=== PATIENT | female | born 1995 | race Hispanic/Latino ===

== ENCOUNTER 2025-05-03 14:52 | Inpatient (IN) | payer BC ==
[~2025-05-03] VITALS: Ht 149.9 cm; Wt 77.1 kg
[2025-05-03] MEDS: DICYCLOMINE HCL 20 MG/2 ML VIAL IM ONE (16:18)
[2025-05-03] MEDS: SODIUM CHLORIDE 0.9% 1000ML 1,000 ML IV STA (16:18)
[2025-05-03 16:32] LABS: BASOPHILS % 0.2 % (0.0-1.0); EOSINOPHILS % 0.5 % (0.0-6.0); LYMPHOCYTES % 15.9 % (18.0-39.1); MONOCYTES % 9.8 % (4.4-11.3); NEUTROPHILS % 73.3 % (38.7-80.0); RED CELL DISTRIBUTION WIDTH 11.9 % (11.7-14.4)
[2025-05-03 16:39] LABS: EPITHELIAL CELLS,URINE MODERATE /LPF; LEUKOCYTE ESTERASE ,URINE SMALL (NEGATIVE); PROTEIN,URINE DIPSTICK NEGATIVE (NEGATIVE); URINE UROBILINOGEN 0.2 mg/dL (0.2 - 1)
[2025-05-03 16:54] LABS: EST GLOMERULAR FILTRATION RATE 121.0 ML/MIN (>=60)
[2025-05-03] MEDS: KETOROLAC TROMETHAMINE 30 MG/ML VIAL IV STA (17:01)
[2025-05-03] MEDS: ONDANSETRON HCL INJ 2MG/ML 2ML 2 MG/ML VIAL IV PRN (17:01)
[2025-05-03] MEDS ORDERED: IOPAMIDOL 370 MG/ML 100 ML INFUS..BTL INJ ONE (17:56)
[2025-05-03] MEDS ORDERED: ONDANSETRON HCL INJ 2MG/ML 2ML 2 MG/ML VIAL IV PRN (19:00)
[2025-05-03 19:47] VITALS: PULSE 64; RESP 17; TEMP 98
[2025-05-03 20:51] VITALS: BP 120/65; PULSE 65; RESP 16; TEMP 98.1; O2SAT 98
[2025-05-03 21:00] VITALS: BP 120/65; PULSE 65; RESP 16; TEMP 98.1; O2SAT 98
[2025-05-03] MEDS: SODIUM CHLORIDE 0.9% 1000ML 1,000 ML IV SCH (21:18)
[2025-05-04] VITALS (9 sets, daily range): BP systolic 103–133; BP diastolic 50–81; PULSE 58–69; RESP 16–18; TEMP 97.7–98.3; O2SAT 98–100
[2025-05-04 05:29] LABS: BASOPHILS % 0.3 % (0.0-1.0); EOSINOPHILS % 1.1 % (0.0-6.0); LYMPHOCYTES % 25.6 % (18.0-39.1); MONOCYTES % 12.1 % (4.4-11.3); NEUTROPHILS % 60.6 % (38.7-80.0); RED CELL DISTRIBUTION WIDTH 11.9 % (11.7-14.4)
[2025-05-04 06:16] LABS: EST GLOMERULAR FILTRATION RATE 105.0 ML/MIN (>=60)
[2025-05-04] MEDS ORDERED: SEVOFLURANE INHAL SOLN 250 ML PEN BTL ONE (11:54)
[2025-05-04] MEDS ORDERED: MIDAZOLAM HCL 2 MG/2 ML VIAL ONE (11:54)
[2025-05-04] MEDS ORDERED: LIDOCAINE HCL 2% LOCAL INJ 5 ML SDV VIAL INJ ONE (11:54)
[2025-05-04] MEDS ORDERED: ROCURONIUM BROMIDE 1 ML IV ONE (11:54)
[2025-05-04] MEDS ORDERED: PROPOFOL IV EMULSION 10 MG/ML 20 ML VIAL ONE (11:54)
[2025-05-04] MEDS ORDERED: FENTANYL CITRATE/PF 100MCG/2 ML INJ ONE (11:54)
[2025-05-04] MEDS ORDERED: DEXAMETHASONE SOD PHOS INJ 4 MG/ML SDV ONE (12:49)
[2025-05-04] MEDS ORDERED: ONDANSETRON HCL INJ 2MG/ML 2ML 2 MG/ML VIAL ONE (12:49)
[2025-05-04] MEDS ORDERED: ACETAMINOPHEN 1000 MG/100 ML 100 ML IV ONE (12:49)
[2025-05-04] MEDS ORDERED: KETOROLAC TROMETHAMINE 30 MG/ML VIAL ONE (12:52)
[2025-05-04] MEDS ORDERED: CEFTRIAXONE 1 GM VIAL ONE (13:36)
[2025-05-04] MEDS ORDERED: GLYCOPYRROLATE INJ 0.2 MG/ML VIAL ONE ×2 (13:36→13:37)
[2025-05-04] MEDS ORDERED: SUGAMMADEX SODIUM 200 MG/2 ML VIAL IV ONE (13:36)
[2025-05-04] MEDS ORDERED: NEOSTIGMINE 1 MG/ML 10ML VIAL ONE (13:36)
[2025-05-04] MEDS ORDERED: HYDROCODONE/APAP 7.5MG-325MG 1 EA TAB PO PRN (14:00)
[2025-05-04] MEDS ORDERED: KETOROLAC TROMETHAMINE 30 MG/ML VIAL IV PRN (14:00)
[2025-05-05] VITALS (7 sets, daily range): BP systolic 116–146; BP diastolic 60–90; PULSE 54–72; RESP 17–19; TEMP 97.7–98.7; O2SAT 99–100
[2025-05-05] MEDS: Morphine 4mg INJECTION 4 MG/ML INJ IV PRN (04:19)
[2025-05-05 05:06] LABS: BASOPHILS % 0.1 % (0.0-1.0); EOSINOPHILS % 0.0 % (0.0-6.0); LYMPHOCYTES % 16.9 % (18.0-39.1); MONOCYTES % 7.6 % (4.4-11.3); NEUTROPHILS % 75.2 % (38.7-80.0); RED CELL DISTRIBUTION WIDTH 11.6 % (11.7-14.4)
[2025-05-05 05:32] LABS: EST GLOMERULAR FILTRATION RATE 124.0 ML/MIN (>=60)
== END 2025-05-05 18:45 | disposition home or self-care (01) | DRG 399 ==
LOC: ER 15:55 → ERHOLD 18:48 → MED/SURG 20:39
PROVIDERS: ADMIT Surgery; ATTEND Surgery
PROC: 0DTJ4ZZ Resection of Appendix, Percutaneous Endoscopic Approach (ICD-10-PCS; principal; 2025-05-04 12:35)
DX: K35.80 Unspecified acute appendicitis (principal); Z87.891 Personal history of nicotine dependence
CPT/HCPCS: 36415; 74177; 80048; 80053; 81001; 81025; 83690; 85025; 88304; 99284; C1766; J0696; J1100; J1885; J2003; J2250; J2270; J2405; J2710; J7030; Q9967